=== PATIENT | male | born 1985 | race Caucasian/White ===

== ENCOUNTER 2018-07-26 20:30 | Emergency (ER) | payer BC, OTHER ==
[~2018-07-26] VITALS: Ht 175.3 cm; Wt 90.9 kg
[2018-07-26] MEDS ORDERED: RAMI1CAP24 PO (22:02)
[2018-07-26] MEDS ORDERED: METO1TAB32 PO (22:02)
[2018-07-26] MEDS ORDERED: PERC5TAB12 PO (23:15)
[2018-07-26] MEDS ORDERED: OXYCODONE/APAP 5MG/325MG(BULK FOR ED) 1 TABLET PO ONE (23:15)
[2018-07-26] MEDS ORDERED: PERCOCET 5MG/325MG TAB PO ONE (23:15)
[2018-07-26 23:32] VITALS: BP 126/89
--- NOTE | 2018-07-27 01:33 | REP ---
Clinical: Trauma/fall with right ankle pain . Technique: AP, lateral, bilateral oblique views. Findings: Lateral view best demonstrates a posterior malleolar fracture. Moderate diffuse soft tissue swelling noted. Talar dome appears intact. Impression: Posterior malleolar fracture. Electronically Signed by Shoaib Dasilva MD 07/27/2018 01:25 A
== END 2018-07-26 23:31 | disposition home or self-care (01) ==
LOC: M ED 20:30
DX: S82.51XA Displaced fracture of medial malleolus of right tibia, initial encounter for closed fracture (principal); W19.XXXA Unspecified fall, initial encounter; Y92.099 Unspecified place in other non-institutional residence as the place of occurrence of the external cause; Y93.9 Activity, unspecified; Y99.9 Unspecified external cause status; I10 Essential (primary) hypertension; Z79.899 Other long term (current) drug therapy

== ENCOUNTER → 2020-10-20 | Outpatient (CLI) | payer BC ==
[~2020-10-20] MED LIST: METO1TAB32 PO; PERC5TAB12 PO; RAMI1CAP24 PO
--- NOTE | 2020-10-21 07:10 | REP ---
INDICATION: CHEST PAIN ON BREATHING COMPARISON: None. TECHNIQUE: Frontal view of the chest with multiple views of the left hemithorax. FINDINGS: Frontal view of the chest demonstrates no acute cardiopulmonary process, contusion, effusion, or pneumothorax. A presumed 7 mm calcified granuloma in the left upper lung zone and calcified lymph nodes are identified and unchanged compared to 2014. Multiple views of the left hemithorax demonstrates no acute rib fracture/injury or pathology. IMPRESSION: Normal rib series. Evidence for prior granulomatous disease. <Electronically signed by Shoaib Dasilva > 10/21/20 [id number]
== END ==
LOC: M RAD 17:15
PROVIDERS: ATTEND Nurse Practitioner Family
DX: R07.1 Chest pain on breathing (principal)

== ENCOUNTER 2021-01-29 12:50 | Emergency (ER) | payer BC ==
[~2021-01-29] VITALS: Ht 175.3 cm; Wt 93.0 kg
[2021-01-29 15:40] LABS: BASO # 0.1 10^3/uL (0.0-0.2); BASO % 1.1 % (0.0-1.0); EOS # 0.2 10^3/uL (0.0-0.5); EOS % 2.8 % (0.0-3.0); HEMATOCRIT 45.6 % (42.0-52.0); HEMOGLOBIN 15.6 g/dl (13.5-17.5); LYMPH # 2.2 10^3/uL (1.5-5.0); MEAN CORPUSCULAR HEMOGLOBIN 30.5 pg (27.0-33.0); MEAN CORPUSCULAR HGB CONC 34.2 g/dl (32.0-36.5); MEAN CORPUSCULAR VOLUME 89.2 fl (80.0-96.0); MONO # 0.7 10^3/uL (0.0-0.8); MONO % 9.8 % (2.0-8.0); NEUTROPHILS # 4.1 10^3/uL (1.5-8.5); PLATELET COUNT, AUTOMATED 301 10^3/uL (150-450); RED BLOOD COUNT 5.11 10^6/uL (4.30-6.10); WHITE BLOOD COUNT 7.2 10^3/uL (4.0-10.0)
[2021-01-29 16:00] LABS: BLOOD UREA NITROGEN 14 MG/DL (7-18); CALCIUM LEVEL 9.3 MG/DL (8.5-10.1); CARBON DIOXIDE LEVEL 30 MEQ/L (21-32); CHLORIDE LEVEL 105 MEQ/L (98-107); CK-MB VALUE MASS < 1.0 NG/ML (<3.6); CPK CREATINE PHOSPHOKINASE 132 U/L (39-308); CREATININE FOR GFR 0.93 MG/DL (0.70-1.30); GLOMERULAR FILTRATION RATE > 60.0 (>60); GLUCOSE, FASTING 94 MG/DL (70-100); MB/CK RELATIVE INDEX 0.76 (< OR =4); POTASSIUM SERUM 4.3 MEQ/L (3.5-5.1); SODIUM LEVEL 139 MEQ/L (136-145); TROPONIN I < 0.02 NG/ML (< 0.10)
--- NOTE | 2021-01-29 17:22 | REP ---
INDICATION: left chest pressure, hx of pneumothorax. COMPARISON: 03/09/2013 TECHNIQUE: Two views FINDINGS: Calcified hilar and mediastinal lymph nodes. Calcified granulomas left lung. Pleural thickening left hemithorax. No active parenchymal disease in the lungs and no interval change compared to the previous study. IMPRESSION: No active process. Chronic changes. <Electronically signed by Shaun Urbina > 01/29/21 [id number]
[2021-01-29 18:36] VITALS: BP 133/95
--- NOTE | 2021-01-30 08:42 | ECGEPIP ---
[facility] - ED Test Date: 2021-01-29 Pat Name: SAM GREGORIO Department: Room: - Gender: Male [employer] Engineering Manager: IVANIA : 1985 Requested By: LITO Perez Order Number: [id number] Reading MD: Trev Ortiz Measurements Intervals [place] Rate: 71 P: 53 [place]: 132 QRS: 1 QRSD: 86 T: 31 QT: 360 QTc: 391 Interpretive Statements Normal sinus rhythm POOR R WAVE PROGRESSION NO PRIORS FOR COMPARISON Electronically Signed on 01-30-2021 8:42:37 EDT by Trev Ortiz
== END 2021-01-29 18:37 | disposition home or self-care (01) ==
LOC: M ED 12:50
DX: R07.89 Other chest pain (principal)

== ENCOUNTER → 2021-04-28 | Outpatient (REF) ==
--- NOTE | 2021-04-28 10:17 | REP ---
INDICATION: SOB. COMPARISON: None TECHNIQUE: Three views FINDINGS: Multiple views of the paranasal sinuses show no abnormal soft tissue densities within any of the visualized paranasal sinuses. There are no air fluid levels. There is no lysis or sclerosis of the bony architecture surrounding the paranasal sinuses. There is no significant nasal septal deviation. The adenoidal soft tissues are within normal limits. There is no evidence of airway compromise. IMPRESSION: Unremarkable paranasal sinuses. <Electronically signed by Fred Avina > 04/28/21 [id number]
--- NOTE | 2021-04-28 10:18 | REP ---
INDICATION: SOB. COMPARISON: Multiple the latest 01/29/2021 TECHNIQUE: PA and lateral FINDINGS: There are calcified mediastinal and hilar lymph nodes status quo. There is a calcified granuloma in the left upper lobe status quo. There are chronic left base changes status quo. No acute patchy parenchymal opacities or pleural effusions have developed. The cardiomediastinal silhouette is stable. The heart is not enlarged. There is no significant change in appearance of the osseous structures. IMPRESSION: Stable appearing chronic changes. <Electronically signed by Fred Avina > 04/28/21 [id number]
== END ==
LOC: M PLAIMG 08:55
PROVIDERS: ATTEND Internal Medicine
DX: R06.02 Shortness of breath (principal); J84.10 Pulmonary fibrosis, unspecified

== ENCOUNTER → 2022-11-29 | Outpatient (REF) | payer OTHER ==
[2022-11-29 13:06] LABS: BASO # 0.1 10^3/uL (0.0-0.2); BASO % 1.1 % (0.0-1.0); EOS # 0.2 10^3/uL (0.0-0.5); EOS % 3.3 % (0.0-3.0); HEMATOCRIT 43.4 % (42.0-52.0); HEMOGLOBIN 14.1 g/dl (13.5-17.5); LYMPH # 1.8 10^3/uL (1.5-5.0); LYMPH % 33.2 % (24.0-44.0); MEAN CORPUSCULAR HEMOGLOBIN 30.2 pg (27.0-33.0); MEAN CORPUSCULAR HGB CONC 32.5 g/dl (32.0-36.5); MEAN CORPUSCULAR VOLUME 92.9 fl (80.0-96.0); MONO # 0.5 10^3/uL (0.0-0.8); MONO % 8.4 % (2.0-8.0); NEUTROPHILS # 2.9 10^3/uL (1.5-8.5); NEUTROPHILS % 53.8 % (36.0-66.0); PLATELET COUNT, AUTOMATED 280 10^3/uL (150-450); RED BLOOD COUNT 4.67 10^6/uL (4.30-6.10); WHITE BLOOD COUNT 5.5 10^3/uL (4.0-10.0)
[2022-11-29 13:28] LABS: AMORPHOUS SEDIMENT MODERATE (NEGATIVE); APPEARANCE, URINE TURBID (CLEAR); BACTERIA, URINE AUTO NEGATIVE (NEGATIVE); BILIRUBIN, URINE AUTO NEGATIVE (NEGATIVE); BLOOD, URINE BLOOD NEGATIVE (NEGATIVE); COLOR, URINE YELLOW (YELLOW); GLUCOSE, URINE (UA) AUTO NEGATIVE (NEGATIVE); KETONE, URINE AUTO NEGATIVE (NEGATIVE); LEUKOCYTE ESTERASE, URINE AUTO NEGATIVE (NEGATIVE); MUCUS, URINE SMALL (NEGATIVE); NITRITE, URINE AUTO NEGATIVE (NEGATIVE); PROTEIN, URINE AUTO NEGATIVE (NEGATIVE); RBC, URINE AUTO 0 /HPF (0-3); SPECIFIC GRAVITY URINE AUTO 1.023 (1.002-1.035); SQUAMOUS EPITHELIAL CELL UR AU 0 /HPF (0-6); UROBILINOGEN, URINE AUTO 0.2 mg/dL (0.0-2.0); WBC, URINE AUTO 1 /HPF (0-3)
[2022-11-29 13:36] LABS: ALBUMIN 4.2 G/DL (3.2-5.2); ALKALINE PHOSPHATASE 55 U/L (46-116); ALT/SGPT 31 U/L (7.0-40); AST/SGOT 21 U/L (<34); BILIRUBIN,TOTAL 0.4 MG/DL (0.3-1.2); BLOOD UREA NITROGEN 13 MG/DL (9-23); CALCIUM LEVEL 8.6 MG/DL (8.5-10.1); CARBON DIOXIDE LEVEL 28 MMOL/L (20-31); CHLORIDE LEVEL 106 MMOL/L (98-107); CREATININE FOR GFR 0.83 MG/DL (0.70-1.30); GLOMERULAR FILTRATION RATE > 60.0 (>60); GLUCOSE, FASTING 87 MG/DL (60-100); POTASSIUM SERUM 4.3 MMOL/L (3.5-5.1); SODIUM LEVEL 141 MMOL/L (136-145)
[2022-11-29 13:39] LABS: C REACTIVE PROTEIN QUANTITATIV < 0.40 MG/DL (<1.0); COMPLEMENT C3 145.7 MG/DL (84.0-160.0)
[2022-11-29 13:40] LABS: COMPLEMENT C4 30.4 MG/DL (12-36)
[2022-11-29 13:46] LABS: TOTAL PROTEIN,RANDOM URINE 11.1 MG/DL (0.0-14.0)
[2022-11-29 13:49] LABS: CREATININE,RANDOM URINE 174.6 MG/DL
[2022-11-29 14:52] LABS: ERYTHROCYTE SEDIMENTATION RATE 9 mm/hr (0-15)
== END ==
LOC: M SFHCRHEU 08:47
PROVIDERS: ATTEND Internal Medicine Rheumatology
DX: R76.8 Other specified abnormal immunological findings in serum (principal); M25.50 Pain in unspecified joint

== ENCOUNTER → 2023-01-16 | Outpatient (CLI) | payer OTHER | LOC: M RAD 13:25 | PROVIDERS: ATTEND Internal Medicine Rheumatology | DX: R76.8 Other specified abnormal immunological findings in serum (principal); M25.50 Pain in unspecified joint ==

== ENCOUNTER → 2025-04-15 | Outpatient (CLI) | payer OTHER ==
[~2025-04-15] MED LIST changes: -RAMI1CAP24 PO; +RAMI5CAP60 PO
== END ==
LOC: M SLEEP 20:00
PROVIDERS: ATTEND Registered Nurse
DX: G47.9 Sleep disorder, unspecified (principal); R06.83 Snoring